=== PATIENT | female | born 1960 | race Caucasian/White ===

== ENCOUNTER 2019-11-23 15:35 | Emergency (ER) | payer MEDICAID ==
[~2019-11-23] VITALS: Ht 154.9 cm; Wt 75.0 kg
[2019-11-23 15:54] VITALS: BP 141/94
== END 2019-11-23 16:18 | disposition left against medical advice (07) ==
LOC: ER 15:36
DX: R51.9 Headache, unspecified (principal); Z53.21 Procedure and treatment not carried out due to patient leaving prior to being seen by health care provider

== ENCOUNTER 2021-06-04 19:02 | Emergency (ER) | payer MEDICAID ==
[~2021-06-04] VITALS: Ht 157.5 cm; Wt 77.3 kg
[2021-06-04 19:09] VITALS: BP 125/88
[2021-06-04] MEDS ORDERED: ketorolac trometh. 30mg/ml inj. IM ONE (20:00)
[2021-06-04] MEDS ORDERED: IBUP-1985 PO (20:00)
== END 2021-06-04 20:32 | disposition home or self-care (01) ==
LOC: ER 19:03
DX: M54.32 Sciatica, left side (principal); Z79.899 Other long term (current) drug therapy
CPT/HCPCS: 96372; 99283; J1885

== ENCOUNTER 2021-06-09 17:55 | Emergency (ER) | payer MEDICAID ==
[~2021-06-09] VITALS: Ht 154.9 cm; Wt 81.8 kg
[~2021-06-09 17:55] MED LIST: IBUP-1985 PO
[2021-06-09 18:01] VITALS: BP 147/85
[2021-06-09] MEDS ORDERED: gabapentin 100mg capsule PO ONE (18:45)
--- NOTE | 2021-06-09 18:58 | NUR ---
po med given
[2021-06-09] MEDS ORDERED: META800T87 PO (19:04)
== END 2021-06-09 19:20 | disposition home or self-care (01) ==
LOC: ER 17:56
DX: S86.912A Strain of unspecified muscle(s) and tendon(s) at lower leg level, left leg, initial encounter (principal); M54.32 Sciatica, left side; M79.652 Pain in left thigh; R22.43 Localized swelling, mass and lump, lower limb, bilateral; R20.0 Anesthesia of skin; R20.2 Paresthesia of skin; Z79.899 Other long term (current) drug therapy; X58.XXXA Exposure to other specified factors, initial encounter; Y93.89 Activity, other specified; Y92.89 Other specified places as the place of occurrence of the external cause; Y99.8 Other external cause status
CPT/HCPCS: 99283

== ENCOUNTER 2022-12-18 10:37 | Emergency (ER) | payer MEDICAID ==
[~2022-12-18] VITALS: Ht 157.5 cm; Wt 80.0 kg
[~2022-12-18 10:37] MED LIST changes: +META800T87 PO
[2022-12-18 11:16] LABS: BASOPHILS % (AUTO) 0.7 % (0-1); EOSINOPHILS # (AUTO) 0.3 X10'3 (0-0.9); HEMATOCRIT 49.8 % (35.0-45.0); HEMOGLOBIN 16.8 g/dl (12.0-16.0); LYMPHOCYTES % (AUTO) 27.6 % (21-51); MEAN CORPUSCULAR HEMOGLOBIN 32.8 PG (27.0-31.0); MEAN CORPUSCULAR HGB CONC 33.7 g/dL (33.0-36.5); MEAN CORPUSCULAR VOLUME 97.3 FL (78-98); MEAN PLATELET VOLUME 8.3 FL (7.4-10.4); MONOCYTES # (AUTO) 0.6 X10'3 (0-0.9); MONOCYTES % (AUTO) 8.6 % (2-12); NEUTROPHILS # (AUTO) 4.2 X10'3 (1.8-7.7); NEUTROPHILS % (AUTO) 59.1 % (42-75); PLATELET COUNT 267 X10'3 (140-440); RED BLOOD COUNT 5.12 X10'6 (4.20-5.60); RED CELL DISTRIBUTION WIDTH 13.4 % (11.5-14.5); WHITE BLOOD COUNT 7.1 X10'3 (4.5-11.0)
[2022-12-18 11:38] LABS: ALANINE AMINOTRANSFERASE 32 U/L (12-78); ALBUMIN 3.8 G/DL (3.4-5.0); ALKALINE PHOSPHATASE 100 IU/L (46-116); ANION GAP 10 (8-16); BILIRUBIN,TOTAL 0.4 MG/DL (0.1-1.0); BLOOD UREA NITROGEN 17 MG/DL (7-18); BUN/CREATININE RATIO 25.4 (10.0-20.0); CALCIUM 9.5 MG/DL (8.5-10.1); CHLORIDE 101 MMOL/L (99-107); CREATININE 0.67 MG/DL (0.40-0.90); GLUCOSE 122 MG/DL (70-104); SODIUM 139 MMOL/L (135-145); TOTAL CARBON DIOXIDE 27.7 MMOL/L (24-32); TOTAL PROTEIN 7.5 G/DL (6.4-8.2); eCRCL 71 ML/MIN; eGFR 90 ML/MIN
[2022-12-18 11:40] LABS: ASPARTATE AMINO TRANSFERASE 27 U/L (10-37)
[2022-12-18 11:54] LABS: APTT 29 SECONDS (22-32); PROTHROMBIN TIME 10.3 SECONDS (9.0-12.0)
[2022-12-18 13:02] VITALS: BP 147/85; PULSE 92; RESP 16; TEMP 98.5; O2SAT 99
== END 2022-12-18 16:55 | disposition left against medical advice (07) ==
LOC: ER 10:37
DX: R51.9 Headache, unspecified (principal)
CPT/HCPCS: 36415; 70450; 71045; 80053; 82948; 85025; 85610; 85730; 93005; 99285

== ENCOUNTER 2023-07-12 04:37 | Inpatient (IN) | payer MEDICAID ==
[~2023-07-12] VITALS: Ht 154.9 cm; Wt 84.9 kg
[2023-07-12 05:57] LABS: BASOPHILS # (AUTO) 0.1 X10'3 (0-0.2); BASOPHILS % (AUTO) 0.9 % (0-1); EOSINOPHILS # (AUTO) 0.4 X10'3 (0-0.9); EOSINOPHILS % (AUTO) 6.1 % (0-6); HEMATOCRIT 42.3 % (35.0-45.0); HEMOGLOBIN 14.5 g/dl (12.0-16.0); LYMPHOCYTES # (AUTO) 1.7 X10'3 (1.1-4.8); MEAN CORPUSCULAR HEMOGLOBIN 32.9 PG (27.0-31.0); MEAN CORPUSCULAR HGB CONC 34.3 g/dL (33.0-36.5); MEAN CORPUSCULAR VOLUME 96.1 FL (78-98); MEAN PLATELET VOLUME 8.6 FL (7.4-10.4); MONOCYTES # (AUTO) 0.8 X10'3 (0-0.9); MONOCYTES % (AUTO) 11.5 % (2-12); NEUTROPHILS # (AUTO) 3.8 X10'3 (1.8-7.7); NEUTROPHILS % (AUTO) 56.5 % (42-75); PLATELET COUNT 240 X10'3 (140-440); RED CELL DISTRIBUTION WIDTH 13.2 % (11.5-14.5); WHITE BLOOD COUNT 6.7 X10'3 (4.5-11.0)
[2023-07-12 06:00] LABS: ALBUMIN 3.5 G/DL (3.4-5.0); ANION GAP 6 (8-16); BLOOD UREA NITROGEN 23 MG/DL (7-18); BUN/CREATININE RATIO 34.8 (10.0-20.0); CALCIUM 8.7 MG/DL (8.5-10.1); CHLORIDE 105 MMOL/L (99-107); CREATININE 0.66 MG/DL (0.40-0.90); GLUCOSE 105 MG/DL (70-104); POTASSIUM 3.5 MMOL/L (3.5-5.1); SODIUM 141 MMOL/L (135-145); TOTAL CARBON DIOXIDE 30.2 MMOL/L (24-32); eCRCL 68 ML/MIN; eGFR > 90 ML/MIN
[2023-07-12 06:05] LABS: APTT 28 SECONDS (22-32); PROTHROMBIN TIME 10.7 SECONDS (9.0-12.0)
[2023-07-12] MEDS ORDERED: morphine 2 MG/ML inj. syringe IV PRN (06:35)
[2023-07-12] MEDS: normal saline 1000ML IV soln IVB ONE (06:47)
[2023-07-12] MEDS: proCHLORperazine 10 MG/2 ml inj IV ONE (06:47)
[2023-07-12] MEDS: ketorolac tromethamine 15mg/ml inj. IV ONE (06:49)
[2023-07-12] MEDS: SUMAtriptan succ. 6 MG/0.5ml vial SQ ONE (06:50)
[2023-07-12] MEDS: normal saline 1000ml 1,000 ML IV SCH (08:35)
[2023-07-12] MEDS ORDERED: hydrALAZINE 20mg/ml inj. IV PRN (08:35)
[2023-07-12] MEDS ORDERED: acetaminophen 325mg tablet PO PRN (08:35)
[2023-07-12] MEDS: aspirin 325mg tablet PO ONE (09:53)
[2023-07-12 09:54] LABS: CHOL/HDL RATIO 2.8 (0.00-4.99); CHOLESTEROL 179 MG/DL (0-200); HDL CHOLESTEROL 63 MG/DL (35-60); HEMOGLOBIN A1C 5.2 % (4.5-6.2); LDL CHOLESTEROL 100 MG/DL (50-100); TRIGLYCERIDES 138 MG/DL (20-135)
[2023-07-12 12:20] VITALS: BP 139/73; PULSE 71; RESP 18; TEMP 97.5; O2SAT 97
[2023-07-12 16:00] VITALS: BP 136/64; PULSE 69; RESP 17; TEMP 97.1; O2SAT 98
[2023-07-12] MEDS: METAXALONE 800 MG PO SCH (16:00)
[2023-07-12 17:01] LABS: BILIRUBIN,URINE NEGATIVE (Neg); CLARITY,URINE SLIGHTLY CLOUDY (Clear); COLOR,URINE YELLOW (Yellow); GLUCOSE, URINE NEGATIVE (Neg); KETONES,URINE NEGATIVE (Neg); LEUKOCYTE ESTERASE ,URINE NEGATIVE (Neg); NITRITES, URINE NEGATIVE (Neg); OCCULT BLOOD,URINE NEGATIVE (Neg); PROTEIN,URINE NEGATIVE (Neg); UROBILINOGEN,URINE 0.2 E.U/dL (0.2-1.0)
[2023-07-12 17:14] LABS: URINE AMPHETAMINE SCREEN POSITIVE (Neg); URINE BARBITUATE SCREEN NEGATIVE (Neg); URINE BENZODIAZEPINES SCREEN NEGATIVE (Neg); URINE CANNABINOID SCREEN POSITIVE (Neg); URINE COCAINE SCREEN NEGATIVE (Neg); URINE METHADONE SCREEN NEGATIVE (Neg); URINE PHENCYCLIDINE SCREEN NEGATIVE (Neg)
[2023-07-12 17:24] LABS: UA COLLECTION TYPE NON-SPECIFIED
[2023-07-12 17:25] LABS: BACTERIA,URINE FEW /HPF (Neg); MUCUS STRANDS MANY /LPF (Neg); RBC,URINE 0-2 /HPF (0-2); SQUAMOUS EPITHELIAL CELL,UR FEW /LPF (FEW); WBC,URINE 0-4 /HPF (0-4)
[2023-07-12 18:00] VITALS: BP 137/89; PULSE 80; RESP 16; TEMP 97.7; O2SAT 95
[2023-07-12 20:00] VITALS: BP 137/89; PULSE 80; RESP 16; TEMP 97.7; O2SAT 95
[2023-07-12] MEDS: docusate sod 100mg capsule PO SCH (21:23)
[2023-07-12] MEDS: diphenhydrAMINE 50 mg/ml inj IV ONE (21:23)
[2023-07-12 22:00] VITALS: BP 123/67; PULSE 78; RESP 16; TEMP 97.6; O2SAT 95
[2023-07-13] VITALS (9 sets, daily range): BP systolic 123–174; BP diastolic 65–85; PULSE 68–90; RESP 14–16; TEMP 97.1–97.8; O2SAT 94–99
[2023-07-13 06:14] LABS: BASOPHILS % (AUTO) 0.7 % (0-1); EOSINOPHILS # (AUTO) 0.4 X10'3 (0-0.9); EOSINOPHILS % (AUTO) 6.7 % (0-6); HEMOGLOBIN 14.1 g/dl (12.0-16.0); LYMPHOCYTES # (AUTO) 1.8 X10'3 (1.1-4.8); LYMPHOCYTES % (AUTO) 33.2 % (21-51); MEAN CORPUSCULAR HEMOGLOBIN 32.4 PG (27.0-31.0); MEAN CORPUSCULAR HGB CONC 33.5 g/dL (33.0-36.5); MEAN CORPUSCULAR VOLUME 96.7 FL (78-98); MEAN PLATELET VOLUME 9.1 FL (7.4-10.4); MONOCYTES # (AUTO) 0.4 X10'3 (0-0.9); MONOCYTES % (AUTO) 8.3 % (2-12); NEUTROPHILS # (AUTO) 2.8 X10'3 (1.8-7.7); NEUTROPHILS % (AUTO) 51.1 % (42-75); PLATELET COUNT 242 X10'3 (140-440); RED BLOOD COUNT 4.35 X10'6 (4.20-5.60); RED CELL DISTRIBUTION WIDTH 13.4 % (11.5-14.5); WHITE BLOOD COUNT 5.4 X10'3 (4.5-11.0)
[2023-07-13 06:45] LABS: ALANINE AMINOTRANSFERASE 38 U/L (12-78); ALBUMIN/GLOBULIN RATIO 0.9 (1.1-1.5); ALKALINE PHOSPHATASE 87 IU/L (46-116); ANION GAP 7 (8-16); ASPARTATE AMINO TRANSFERASE 27 U/L (10-37); BILIRUBIN,TOTAL 0.5 MG/DL (0.1-1.0); BLOOD UREA NITROGEN 17 MG/DL (7-18); BUN/CREATININE RATIO 28.3 (10.0-20.0); CALCIUM 8.5 MG/DL (8.5-10.1); CHLORIDE 107 MMOL/L (99-107); GLUCOSE 85 MG/DL (70-104); POTASSIUM 3.7 MMOL/L (3.5-5.1); SODIUM 141 MMOL/L (135-145); THYROID STIMULATING HORMONE 2.12 ulU/ml (0.34-4.50); TOTAL PROTEIN 6.3 G/DL (6.4-8.2); eCRCL 75 ML/MIN; eGFR > 90 ML/MIN
[2023-07-13] MEDS: atorvastatin 20mg tablet PO SCH (07:29)
[2023-07-13] MEDS: enoxaparin 40mg/0.4ml syringe SQ SCH (07:29)
[2023-07-13] MEDS: aspirin 81mg, enteric-coated 1 TAB TABLET.DR PO SCH (07:29)
[2023-07-13] MEDS ORDERED: clopidogrel 75mg tablet PO SCH (08:00)
[2023-07-13] MEDS: diazepam inj 5 MG/ML inj. IV ONE (13:38)
[2023-07-13] MEDS: acetaminophen 325mg tablet PO PRN (19:04)
[2023-07-14] VITALS: BP 152/79; PULSE 94; RESP 18; TEMP 98.2; O2SAT 99
[2023-07-14 04:00] VITALS: BP 144/79; PULSE 77; RESP 18; TEMP 97.7; O2SAT 98
[2023-07-14 06:05] LABS: BASOPHILS % (AUTO) 0.7 % (0-1); EOSINOPHILS # (AUTO) 0.4 X10'3 (0-0.9); EOSINOPHILS % (AUTO) 6.2 % (0-6); HEMATOCRIT 42.5 % (35.0-45.0); HEMOGLOBIN 14.6 g/dl (12.0-16.0); LYMPHOCYTES # (AUTO) 1.5 X10'3 (1.1-4.8); MEAN CORPUSCULAR HEMOGLOBIN 32.8 PG (27.0-31.0); MEAN CORPUSCULAR HGB CONC 34.3 g/dL (33.0-36.5); MEAN CORPUSCULAR VOLUME 95.6 FL (78-98); MEAN PLATELET VOLUME 8.4 FL (7.4-10.4); MONOCYTES # (AUTO) 0.6 X10'3 (0-0.9); MONOCYTES % (AUTO) 9.4 % (2-12); NEUTROPHILS # (AUTO) 3.6 X10'3 (1.8-7.7); NEUTROPHILS % (AUTO) 58.7 % (42-75); PLATELET COUNT 218 X10'3 (140-440); RED BLOOD COUNT 4.45 X10'6 (4.20-5.60); RED CELL DISTRIBUTION WIDTH 13.2 % (11.5-14.5); WHITE BLOOD COUNT 6.1 X10'3 (4.5-11.0)
[2023-07-14 06:12] LABS: ALANINE AMINOTRANSFERASE 35 U/L (12-78); ALBUMIN 2.9 G/DL (3.4-5.0); ALBUMIN/GLOBULIN RATIO 0.8 (1.1-1.5); ALKALINE PHOSPHATASE 93 IU/L (46-116); ANION GAP 5 (8-16); ASPARTATE AMINO TRANSFERASE 23 U/L (10-37); BILIRUBIN,TOTAL 0.4 MG/DL (0.1-1.0); BLOOD UREA NITROGEN 16 MG/DL (7-18); CALCIUM 8.4 MG/DL (8.5-10.1); CHLORIDE 106 MMOL/L (99-107); CREATININE 0.64 MG/DL (0.40-0.90); GLUCOSE 100 MG/DL (70-104); POTASSIUM 3.8 MMOL/L (3.5-5.1); SODIUM 140 MMOL/L (135-145); TOTAL CARBON DIOXIDE 29.5 MMOL/L (24-32); TOTAL PROTEIN 6.4 G/DL (6.4-8.2); eCRCL 71 ML/MIN; eGFR > 90 ML/MIN
[2023-07-14 07:00] VITALS: BP 125/86; PULSE 85; RESP 18; TEMP 97.9; O2SAT 100
[2023-07-14 11:00] VITALS: BP 143/78; PULSE 95; RESP 18; TEMP 96.7; O2SAT 96
[2023-07-14] MEDS ORDERED: ASPI-1071 PO (13:21)
[2023-07-14] MEDS ORDERED: ATOR20TA66 PO (13:21)
== END 2023-07-14 14:35 | disposition home or self-care (01) | DRG 54 ==
LOC: ER 04:38 → ED HOLD 08:51 → PCU 3S 12:02
PROVIDERS: ADMIT Family Medicine; ATTEND Family Medicine
DX: G43.809 Other migraine, not intractable, without status migrainosus (principal); G45.9 Transient cerebral ischemic attack, unspecified; E11.9 Type 2 diabetes mellitus without complications; F17.210 Nicotine dependence, cigarettes, uncomplicated; M54.32 Sciatica, left side; G89.4 Chronic pain syndrome; E78.5 Hyperlipidemia, unspecified; F10.10 Alcohol abuse, uncomplicated; Y90.9 Presence of alcohol in blood, level not specified; F15.10 Other stimulant abuse, uncomplicated; F12.10 Cannabis abuse, uncomplicated; M51.36 Other intervertebral disc degeneration, lumbar region; M48.061 Spinal stenosis, lumbar region without neurogenic claudication; E88.2 Lipomatosis, not elsewhere classified; M43.16 Spondylolisthesis, lumbar region; M40.56 Lordosis, unspecified, lumbar region
CPT/HCPCS: 36415; 70450; 70551; 71045; 72148; 80048; 80053; 80305; 81001; 82948; 84443; 85025; 85610; 85651; 85730; 87081; 92508; 92616; 93005; 93306; 93880; 96374; 96375; 97161; 97530; 99285; G0378; J0780; J1200; J1650; J1885; J3030; J3360; J7030

== ENCOUNTER 2024-06-27 21:16 | Inpatient (IN) | payer MEDICAID ==
[~2024-06-27] VITALS: Ht 154.9 cm; Wt 72.0 kg
[~2024-06-27 21:16] MED LIST changes: +ASPI-1071 PO; +ATOR20TA66 PO
--- NOTE | 2024-06-27 21:39 | ELECTROCARDIOGRAPH REPORT ---
[facility] Test Date: 2024-06-27 Test Time: 21:22:47 Pat Name: ELAINA GARCIA Department: EMERGENCY ROOM Room: ORTH[facility] Gender: F Sample Stitcher: PEE : 1960 Requested By: TONEY BAUTISTA Order Number: [id number] Reading MD: Dr. Ronni Jackson Measurements Intervals [place] Rate: 92 P: 47 CO: 139 QRS: 58 QRSD: 90 T: 20 QT: 368 QTc: 456 Interpretive Statements Sinus rhythm Electronically Signed On 06-30-2024 21:44:[address] Ronni Jackson Please click the below link to view image of tracing.
--- NOTE | 2024-06-27 21:51 | RADIOLOGY REPORT ---
CT CT STROKE ALERT INDICATION: Neurological symptoms COMPARISON: CT CT STROKE ALERT on DOS: 07/12/23, CT CT STROKE ALERT on DOS: 12/18/22 TECHNIQUE: CT of the head without intravenous contrast. RADIATION DOSE: CTDIvol: 54 mGy, DLP: 850 mGy*cm FINDINGS: There is no evidence of acute intracranial hemorrhage, extra-axial collection, mass effect, midline s hift, herniation or hydrocephalus. The ventricles, sulci and cisterns are age appropriate. The marquez -white differentiation is intact. The visualized paranasal sinuses and mastoid air cells are clear. The surrounding soft tissues and osseous structures are unremarkable. IMPRESSION: 1. No evidence of acute intracranial hemorrhage, mass effect or hydrocephalus.
[2024-06-27 21:56] LABS: BASOPHILS # (AUTO) 0.1 X10'3 (0-0.2); BASOPHILS % (AUTO) 0.8 % (0-1); EOSINOPHILS # (AUTO) 0.4 X10'3 (0-0.9); EOSINOPHILS % (AUTO) 5.9 % (0-6); HEMATOCRIT 42.8 % (35.0-45.0); HEMOGLOBIN 14.7 g/dl (12.0-16.0); LYMPHOCYTES # (AUTO) 2.3 X10'3 (1.1-4.8); LYMPHOCYTES % (AUTO) 29.9 % (21-51); MEAN CORPUSCULAR HEMOGLOBIN 32.4 PG (27.0-31.0); MEAN CORPUSCULAR HGB CONC 34.2 g/dL (33.0-36.5); MEAN CORPUSCULAR VOLUME 94.7 FL (78-98); MONOCYTES # (AUTO) 0.9 X10'3 (0-0.9); MONOCYTES % (AUTO) 11.8 % (2-12); NEUTROPHILS # (AUTO) 3.9 X10'3 (1.8-7.7); NEUTROPHILS % (AUTO) 51.6 % (42-75); PLATELET COUNT 278 X10'3 (140-440); RED BLOOD COUNT 4.52 X10'6 (4.20-5.60); WHITE BLOOD COUNT 7.6 X10'3 (4.5-11.0)
[2024-06-27 22:00] LABS: APTT 27 SECONDS (22-32); PROTHROMBIN TIME 10.6 SECONDS (9.0-12.0)
[2024-06-27 22:09] LABS: ALANINE AMINOTRANSFERASE 35 U/L (12-78); ALBUMIN/GLOBULIN RATIO 1.2 (1.1-1.5); ALKALINE PHOSPHATASE 113 IU/L (46-116); ANION GAP 6 (8-16); ASPARTATE AMINO TRANSFERASE 29 U/L (10-37); BILIRUBIN,TOTAL 0.4 MG/DL (0.1-1.0); BLOOD UREA NITROGEN 23 MG/DL (7-18); BUN/CREATININE RATIO 28.8 (10.0-20.0); CALCIUM 8.8 MG/DL (8.5-10.1); CHLORIDE 103 MMOL/L (99-107); GLUCOSE 115 MG/DL (70-104); POTASSIUM 3.6 MMOL/L (3.5-5.1); SODIUM 139 MMOL/L (135-145); TOTAL CARBON DIOXIDE 30.2 MMOL/L (24-32); TOTAL PROTEIN 7.4 G/DL (6.4-8.2); eCRCL 56 ML/MIN; eGFR 73 ML/MIN
[2024-06-27 22:16] LABS: PRO BRAIN NATRIURETIC PEPTIDE 42 PG/ML (0-125)
--- NOTE | 2024-06-28 00:12 | RADIOLOGY REPORT ---
Clinical History CP Comparison None Technique: frontal chest x-ray Without Contrast ELAINA GARCIA, [id number] Findings: Heart - normal lungs - no consolidation. bones - no acute fracture. Other- Impression: 1. No acute cardiopulmonary disease This report was electronically signed by Juan Ramon Cortes MD on 06/28/2024 12:09:46 AM.
[2024-06-28] MEDS ORDERED: potassium Cl 20 mEq SR tablet PO PRN ×2 (01:50)
[2024-06-28] MEDS ORDERED: potassium Cl 40MEQ/1/2NS 520ml 520 ML IV PRN (01:50)
[2024-06-28] MEDS ORDERED: mag hydrox/Alum hydrox/simeth 30ml oral suspension PO PRN (01:50)
[2024-06-28] MEDS ORDERED: morphine 2 MG/ML inj. syringe IV PRN ×2 (01:50)
[2024-06-28] MEDS ORDERED: magnesium Cl slow-release 64mg tablet PO PRN (01:50)
[2024-06-28] MEDS ORDERED: magnesium sulf-water 2g/50mL 50 ML IV PRN (01:50)
[2024-06-28] MEDS ORDERED: magnesium sulf-water 4G/100mL 100 ML IV PRN (01:50)
[2024-06-28] MEDS ORDERED: magnesium hydroxide 30ml (MOM) UD suspension PO PRN (01:50)
--- NOTE | 2024-06-28 01:53 | HISTORY AND PHYSICAL-Residence ---
History & Physical Providers to CC Resident Creating Document: TENA WASHINGTONKEY INDRA, RES ~ History of Present Illness Primary Medical Doctor: [facility] Reason for Admit\Complaint: Right upper and lower extremity weakness. History of Present Illness 63-year-old female patient with past medical history of hypertension, dyslipidemia, depression, chronic back pain, TIA came to the hospital with chief complaint of right-sided upper and lower extremity weakness. The patient mentioned that approximately six days ago she had blurry vision which last approximately 2 minute, two days later she experienced headache 8/10 intensity localized at the level of the occipital area, without radiation, described as a sharp pain. For those symptoms the patient decided to take naproxen which mildly helped, yesterday the patient experienced blurry vision again which last approximately 2 minutes and she noticed that she was unbalanced with right upper and lower extremity weakness. The patient also endorses that she had numbness at the level of the right side of her mouth which last approximately 1 minute. The patient currently denies chest pain, shortness of breath, palpitations, urinary or intestinal symptoms. Allergies: Coded Allergies: No Known Allergies (Unverified , 06/09/21) Home Medications Home Medications Active Ecotrin* (Aspirin) 81 Mg Tablet.dr 1 Tab PO DAILY 30 Days Atorvastatin Calcium 20 Mg Tablet 20 Mg PO DAILY 30 Days Skelaxin (Metaxalone) 800 Mg Tablet 1 Tab PO Q8H 10 Days Ibuprofen 600 Mg Tablet 1 Tab PO Q8H 10 Days Past Medical History Past Medical History Hypertension. Dyslipidemia. Depression. Chronic back pain. TIA last year. Past Surgical History Surgical History Comment Exploratory laparoscopic surgery. Past Social History Smoking: Less than 1 pack/day (Patient endorses that she smokes one pack a week for at least 45 years.) Alcohol Use: Occasionally (As per patient she drinks two shots of Tequila per month.) Drug Use: Marijuana, Methamphetamine Lives with: Other (Boyfriend) Lives In: Home Occupation: disabled ROS All Other Systems: Reviewed and Negative Exam Vitals: Vital Signs Date Time Temp Pulse Resp B/P (MAP) Pulse Ox O2 Delivery O2 Flow Rate FiO2 06/28/24 01:25 91 12 122/71 (88) 98 06/27/24 21:20 97.5 0 Physical exam: General: Well alert, well oriented, not confused, not agitated, not in acute distress, well cooperated during the physical. HEENT: Conjunctive are pink, sclerae clear, no icterus, pupil is equal in both sides, reactive to light, no ear discharge, no pharyngeal erythema or an edema. Neck: Supple, no JVD, no lymphadenopathy and thyromegaly. Chest: Equal air entry on both lungs, no additional sounds no rhonchi no wheezing at the moment. Cardiovascular: S1-S2 regular sinus rhythm and, regular rate, no gallops, no rubs, no murmurs Abdomen: No visible peristalsis, Bowel sounds present on auscultation, soft, nontender, no guarding, no rigidity Extremities: No obvious deformities, no pitting edema bilaterally, capillary refill intact, peripheral pulsations are intact on both sides Central Nervous System: No focal neurological deficits, no motor or sensory weakness in all 4 extremities, could move all 4 extremities, 2+ deep tendon reflexes, negative Babinski, negative pronator drift. Musculoskeletal: No joint swelling, deformities, inflammations, and no scoliosis and back tenderness Skin: Scar from laparoscopic surgery at the level of the navel. Diagnostic Data Last Recorded Lab Results: 06/27/24212306/27/242123 Diagnostic Data: Laboratory Tests Test 06/27/24 21:24 Prothrombin Time 10.6 SECONDS (9.0-12.0) INR International Normalized Ratio 1.0 INR Activated Partial Thromboplast Time 27 SECONDS (22-32) Coagulation Comments Advance Care Planning Advanced Care plannin - 30 Minutes (I spent a total of 17 minutes on reviewing various resuscitative measures/ACP with the patient at the time of admission. The patient has decided on a full code status.) Additional Plan Assessment and plan: 63-year-old female patient came to the hospital with chief complaint of right upper and lower extremity weakness. TIA versus acute ischemic stroke: The patient came to the hospital with chief complaint of right upper and lower extremity weakness. Head CT scan: No evidence of acute intracranial hemorrhage, mass effect or hydrocephalus. Follow-up MRI of the head. Follow-up echocardiogram. Follow-up lipid panel, hemoglobin A1c, TSH. Neurology consulted by ER physician. Awaiting recommendations. Aspirin 81 mg daily. Atorvastatin 80 mg daily. NS at 80 mL/hour. Hypertension: Currently on permissive hypertension. Labetalol p.r.n. for SBP more than 220 mmHg or DBP more than 120 mmHg. Dyslipidemia: Follow-up lipid panel. The patient is currently on atorvastatin 80 mg daily. Chronic back pain: Gabapentin to be continued after med reconciliation. Depression: The patient was taking bupropion. To be continued after med reconciliation. Code status: Full code DVT prophylaxis: SCDs Analgesia/sedation: Morphine Line/tube: PIV GI prophylaxis: Protonix Nutrition: Regular diet PT: Ordered Prognosis: Guarded Disposition: The patient will be admitted to ortho floor with telemetry. [place] [facility] Resident [facility] Date of Service: June 28, 2024 Billing Provider: SPARKLE ANSARI Jr., FRANCO LUIS, RES June 28, 2024 01:53
[2024-06-28 02:29] LABS: POTASSIUM 3.7 MMOL/L (3.5-5.1)
[2024-06-28] MEDS ORDERED: labetalol 20mg/4ml (5mg/ml) syringe IV PRN (02:30)
--- NOTE | 2024-06-28 02:31 | Physician Documentation ---
History of Present Illness ~ Chief Complaint: Stroke Alert Stated Complaint: STROKE ALERT Time Seen by MD: 21:20 Primary Medical Doctor: None Mode of Arrival: POV HPI 63-year-old female patient with past medical history of hypertension, dyslipidemia, depression, chronic back pain, TIA came to the hospital with chief complaint of right-sided upper and lower extremity weakness. The patient mentioned that approximately 6 days ago she had blurry vision which last approximately 2 minutes, two days later she experienced headache 8/10 intensity localized at the level of the occipital area, without radiation, described as a sharp pain. For those symptoms the patient decided to take naproxen which mildly helped, yesterday the patient experienced blurry vision again which last approximately 2 minutes and she noticed that she was unbalanced with right upper and lower extremity weakness. The patient also endorses that she had numbness at the level of the right side of her mouth which last approximately 1 minute. The patient currently denies chest pain, shortness of breath, palpitations, urinary or intestinal symptoms. Medication Reconciliation Allergies: Coded Allergies: No Known Allergies (Unverified , 06/09/21) Scheduled Aspirin (Ecotrin*), 1 TAB PO DAILY Atorvastatin Calcium (Atorvastatin Calcium), 20 MG PO DAILY Ibuprofen (Ibuprofen), 1 TAB PO Q8H Metaxalone (Skelaxin), 1 TAB PO Q8H Past Medical History Past Medical History: Migraine Past Surgical History: no surgical history Smoking Status: Current every day smoker Drug Use: none Lives In: Home Review of Systems All Other Systems at this time: Reviewed and Negative Physical Exam Vital Signs: RN Vital Signs have been reviewed: Yes, Temperature: 97.5, Source: Oral, Heart Rate: 91, Respiratory Rate: 12, BP: 122/71, Pulse Oximetry: 98, Weight: 72.000 Oxygen Flow Rate: 0 General Appearance HEENT: PERRL, moist oral mucosa, EOMI Pulmonary: No respiratory distress MSK: no deformity Skin: w/d/i, no rash Neuro: alert, nonfocal Psych: normal affect Progress Results/Orders Results/Orders Orders - TONEY BAUTISTA MD Chest,Single View (06/27/24 21:19) Monitor (06/27/24 21:19) Saline Lock (06/27/24 21:19) Oxygen (06/27/24 21:19) Hs Troponin I W Calculations (06/28/24 00:19) Accucheck (06/27/24 21:29) Ct Stroke Alert (06/27/24 21:39) Page Hospitalist (06/28/24 ) Completed Orders - TONEY BAUTISTA MD Chest,Single View (06/27/24 21:19) Cbc/Diff (06/27/24 21:19) PBNP (06/27/24 21:19) Electrocardiogram (06/27/24 21:19) CMP (06/27/24 21:19) Hs Troponin I W Calculations (06/27/24 21:19) Hs Troponin I W Calculations (06/27/24 23:19) Urinalysis, Cult If Indicated (06/27/24:) PTT (06/27/24:29) Pt Inr (06/27/24 21:29) Ct Stroke Alert (06/27/24 21:39) Hgb A1c (06/27/24 21:24) TSH (06/27/24 21:24) Medications Received in ER Medications (Trade) Dose Ordered Sig/Nahid Route PRN Reason Start Time Stop Time Status Last Admin Dose Admin Sodium Chloride 1,000 ml @ 80 mls/hr [id number] IV 06/28/24 01:50 06/28/24 03:16 80 MLS/HR Vital Signs 06/27/24 06/27/24 06/27/24 06/27/24 21:20 21:54 21:56 22:01 Temp 97.5 Pulse 94 92 89 Resp 16 18 16 12 B/P (MAP) 184/80 173/80 (111) 152/67 Pulse Ox 99 100 99 O2 Flow Rate 0 06/27/24 06/28/24 06/28/24 23:24 00:14 01:25 Pulse 87 80 91 Resp 19 17 12 B/P (MAP) 120/60 (80) 110/63 (79) 122/71 (88) Pulse Ox 99 94 98 Laboratory Tests Test 06/27/24 21:23 06/27/24 21:24 06/27/24 23:34 Glucometer 111 H White Blood Count 7.6 Red Blood Count 4.52 Hemoglobin 14.7 Hematocrit 42.8 Mean Corpuscular Volume 94.7 Mean Corpuscular Hemoglobin 32.4 H Mean Corpuscular Hemoglobin Concent 34.2 Red Cell Distribution Width 13.0 Platelet Count 278 Mean Platelet Volume 9.0 Neutrophils (%) (Auto) 51.6 Lymphocytes (%) (Auto) 29.9 Monocytes (%) (Auto) 11.8 Eosinophils (%) (Auto) 5.9 Basophils (%) (Auto) 0.8 Neutrophils # (Auto) 3.9 Lymphocytes # (Auto) 2.3 Monocytes # (Auto) 0.9 Eosinophils # (Auto) 0.4 Basophils # (Auto) 0.1 CBC Comment Prothrombin Time 10.6 INR International Normalized Ratio 1.0 Activated Partial Thromboplast Time 27 Coagulation Comments Sodium Level 139 Potassium Level 3.6 Chloride Level 103 Carbon Dioxide Level 30.2 Anion Gap 6 L Blood Urea Nitrogen 23 H Creatinine 0.80 Estimated GFR/1.73 m2 73 BUN/Creatinine Ratio 28.8 H Glucose Level 115 H Hemoglobin A1c 5.3 Calcium Level 8.8 Total Bilirubin 0.4 Aspartate Amino Transf (AST/SGOT) 29 Alanine Aminotransferase (ALT/SGPT) 35 Alkaline Phosphatase 113 Troponin I High Sensitivity 6 5 Pro-B-Type Natriuretic Peptide 42 Total Protein 7.4 Albumin 4.0 Globulin 3.4 Albumin/Globulin Ratio 1.2 Thyroid Stimulating Hormone (TSH) 3.56 Chemistry Comments Troponin I High Sens Percent Delta 16 Troponin I Hi Sens Absolute Change -1 Medical Decision Making Findings 63 year old female with vague neurologic symptoms. Workup here was unremarkable, elected to transfer care to hospitalist for inpatient MRI/workup. Differential Dx:Considerations: Include: Good's Palsey, CVA, DKA, Electrolyte imbalance, Encephalopathy, Hypoxemia, Hypoglycemia, Subarachnoid Hemorrhage, TIA Departure Disposition: 09 ADMITTED INPATIENT Admitted to Inpatient Unit: to hospitalist Admission Level of Care: Med/Surg Impression: Primary Impression: TIA (transient ischemic attack) Condition: Stable Referrals: NO PRIMARY CARE PROVIDER (PCP) Education Educated: Patient Educated regarding: diagnosis, treatment, prognosis, need for follow up Signature Scribe Signature: . Attestation: . TONEY BAUTISTA MD June 28, 2024 02:31
[2024-06-28 02:33] LABS: THYROID STIMULATING HORMONE 3.56 ulU/ml (0.34-4.50)
[2024-06-28 02:35] LABS: HEMOGLOBIN A1C 5.3 % (4.5-6.2)
[2024-06-28 02:54] LABS: URINE AMPHETAMINE SCREEN POSITIVE (Neg); URINE BARBITUATE SCREEN NEGATIVE (Neg); URINE BENZODIAZEPINES SCREEN NEGATIVE (Neg); URINE CANNABINOID SCREEN POSITIVE (Neg); URINE COCAINE SCREEN NEGATIVE (Neg); URINE METHADONE SCREEN NEGATIVE (Neg); URINE OPIATE SCREEN NEGATIVE (Neg); URINE PHENCYCLIDINE SCREEN NEGATIVE (Neg)
[2024-06-28 03:15] LABS: BILIRUBIN,URINE NEGATIVE (Neg); CLARITY,URINE CLEAR (Clear); COLOR,URINE YELLOW (Yellow); GLUCOSE, URINE NEGATIVE (Neg); KETONES,URINE NEGATIVE (Neg); LEUKOCYTE ESTERASE ,URINE NEGATIVE (Neg); NITRITES, URINE NEGATIVE (Neg); OCCULT BLOOD,URINE NEGATIVE (Neg); PH,URINE 6.5 (4.8-8.0); PROTEIN,URINE NEGATIVE (Neg); UROBILINOGEN,URINE 0.2 E.U/dL (0.2-1.0)
[2024-06-28] MEDS: aspirin 325mg tablet PO ONE (03:15)
[2024-06-28] MEDS: normal saline 1000ml 1,000 ML IV SCH (03:16)
[2024-06-28 03:20] LABS: UA COLLECTION TYPE CLN CATCH MIDSTREAM
[2024-06-28] MEDS: magnesium sulf-water 2g/50mL 50 ML IV ONE (04:37)
[2024-06-28] MEDS ORDERED: iohexol 350MG/ML 100ml bottle IV ONE (07:56)
[2024-06-28] MEDS: K and/or MAG REPLACEMENT MC SCH (08:00)
[2024-06-28] MEDS: aspirin 81mg, enteric-coated 1 TAB TABLET.DR PO SCH (08:27)
[2024-06-28] MEDS: atorvastatin 20mg tablet PO SCH (08:28)
[2024-06-28] MEDS: docusate sod 100mg capsule PO SCH (08:28)
[2024-06-28] MEDS: pantoprazole 40mg Tablet.DR PO SCH (08:28)
[2024-06-28] MEDS ORDERED: BUPR100T15 PO (09:25)
[2024-06-28] MEDS ORDERED: LOSA50TA64 PO (09:25)
[2024-06-28] MEDS ORDERED: GABA-530 PO (09:25)
[2024-06-28] MEDS ORDERED: PROP20TA6 PO (09:25)
[2024-06-28] MEDS ORDERED: NAPR-1166 PO (09:25)
[2024-06-28] MEDS ORDERED: CYCL-1 PO (09:25)
[2024-06-28] MEDS: SUMAtriptan 25 MG tablet PO ONE (09:26)
[2024-06-28 10:00] VITALS: BP 154/63; PULSE 89; RESP 16; TEMP 97.9; O2SAT 95
--- NOTE | 2024-06-28 10:34 | RADIOLOGY REPORT ---
CT CTA NECK/HEAD INDICATION: TIA EXAM DATE: 06/28/2024 07:00 AM COMPARISON: None RADIATION DOSE: CTDIvol: 14 mGy, DLP: 508 mGy*cm PROCEDURE: CT angiogram images were obtained of the head and neck. Coronal and sagittal reformatted i mages were created as well as 3D and/or MIP reconstructions. All CT scans at this medical facility are performed using dose modulation techniques as appropriate t o a performed exam including the following: Automated exposure control was utilized; adjustment of th e MA and/or KV according to patient size; and use of iterative reconstruction technique. FINDINGS: Head: Please see CT head for details. On the CT angiographic images, the internal carotid arteries are normal in caliber from the skull bas e to their bifurcations. The anterior and middle cerebral arteries and their branches appear normal. The anterior communicating artery appears normal. The bilateral posterior communicating arteries are normal. The vertebral arteries are codominant. The vertebral, basilar, superior cerebellar, and poste rior cerebral arteries are normal in caliber. No aneurysm, arteriovenous malformation, or stenosis is visible. Neck: 30% stenosis of the proximal right ICA at the bulb. Otherwise the common carotid, internal carotid, external carotid, and vertebral arteries are normal i n caliber. The left vertebral artery is dominant. The visualized intracranial arteries are normal. Th ere is no evidence of contrast extravasation, filling defects, or dissection. The pharynx and airway are normal. The thyroid, submandibular, and parotid glands appear normal. No l ymphadenopathy is seen. The visualized intracranial structures are unremarkable. IMPRESSION: 30% stenosis of the proximal right ICA at the bulb. No acute abnormal CT angiographic findings of the head and neck. No LVO seen
[2024-06-28] MEDS: ondansetron/PF 4mg/2ml inj IV PRN (10:41)
[2024-06-28] MEDS: diazepam inj 5 MG/ML inj. IV ONE (13:19)
--- NOTE | 2024-06-28 14:12 | RADIOLOGY REPORT ---
PROCEDURE: MR MRI HEAD INDICATION: Right upper and lower extremities weakness EXAM DATE: 06/28/2024 01:19 PM COMPARISON: MR MRI HEAD on DOS: 07/13/23 TECHNIQUE: MRI of the brain without intravenous contrast. FINDINGS: Diffusion weighted images of the brain demonstrate no evidence of acute infarction. There is no evidence of acute intracranial hemorrhage, extra-axial collection, mass effect, midline s hift, herniation or hydrocephalus. The ventricles, sulci and cisterns appear age appropriate. Mild changes of chronic microvascular ischemic disease. The major vascular flow voids are present. The visualized paranasal sinuses and mastoid air cells are clear. The surrounding soft tissues and o sseous structures are unremarkable. IMPRESSION: 1. No evidence of acute infarction, intracranial hemorrhage, mass effect or hydrocephalus. HS:Y
--- NOTE | 2024-06-28 15:14 | [facility] CONSULT REPORT ---
[facility] Procedure Note [facility] Procedure Note Consult [facility] Note # Demographics Consult Type: General Neurology Patient Location: Inpatient First Name: Graciela Last Name: Domingo Date of : 1960 Age: 63 Gender: Female Facility: [facility] Time of Initial Page (): 06/28/2024 14:29 Time of Return Call ( Time): 06/28/2024 14:29 # HPI History: 63 y/o F with Hx of migraines presents with migraine, blurry vision and transient Rt arm and leg paresthesia. # Exam Time of Exam (): 06/28/2024 15:08 Mental Status: - awake - alert and oriented x 3 - follows commands Language: - normal speech Cranial Nerves: - extra ocular movements intact - no facial droop Motor: - no drift Sensory: - normal sensation Cerebellar: - normal finger nose - normal heel ann # Data CTA Head: no large vessel occlusion CTA Neck: patent vessels MRI: no acute ischemia # Assessment Impression: - Migraine (Complex) # Plan Medication: - migraine cocktail: Toradol 30 mg IV + Benadryl 25 mg IV + antiemetic IV Other: - If patient has any neurological deterioration please call me back immediately - neurology referral as outpatient # Logistics Attestation of consult completion: The patient is located at: [facility]. Facility staff participated in the visit. I performed this telemedicine visit from my offsite office utilizing interactive 2 way audio and visual telecommunication technology. Total time spent in telemedicine encounter: I spent 30 minutes reviewing clinical data and/or imaging, obtaining history, examining the patient, communicating with the onsite care team, and in preparation of this report. # Demographics First Name: Graciela Last Name: Domingo Facility: [facility] Electronically signed at 06/28/2024 15:13 () by Hannah Manzanares DO Neuro Consult Order placed for: DAVID Howell DO June 28, 2024 15:13
[2024-06-28 18:00] VITALS: BP 146/84; PULSE 94; RESP 20; TEMP 98.3; O2SAT 92
--- NOTE | 2024-06-28 19:25 | CARDIOLOGY REPORT ---
APPROVED REPORT EXAM: Comprehensive 2D, Doppler, and color-flow Echocardiogram. Patient Location: [facility] Heart Rate: 85 bpm Rhythm: SINUS Indications CEREBRALVASCULAR ACCIDENT HYPERTENSION Pet Counselor: NONE Previous echo: 07/13/23 [facility] EF: 58%; nlLV; mCLVH; nlRV; PA 31; nlLA; nlAV; nlMV; trMR; trTR; no PE 2D Dimensions RVDd 3.3 cm LVOT Diameter 1.90 (1.8-2.4cm) CO 3.5 L/min M-Mode Dimensions Left Atrium(MM) 3.48 (2.5-4.0cm) IVSd 0.80 (0.7-1.1cm) LVDd 3.88 (4.0-5.6cm) Aortic Root 2.60 (2.2-3.7cm) PWd 0.86 (0.7-1.1cm) Aortic Cusp Exc 1.76 (1.5-2.0cm) IVSs 1.19 cm MV EPSS 0.4 (<0.5cm) LVDs 2.56 (2.0-3.8cm) FS (%) 34 % PWs 1.22 cm ESV(Teich) 23.7 ml LVEF(%) 63 (>50%) Aortic Valve AoV Peak Yevgeniy. 159.8 cm/s AoV VTI 30.0 cm AO Peak GR. 10.2 mmHg AO Mean GR. 5 mmHg LVOT VTI 25.13 cm LVOT Peak Yevgeniy. 108.5 cm/s DELBERT(VTI)/BSA 2.36 cm2/m2 DELBERT (VTI) 2.36 cm2 Mitral Valve MV E Velocity 113.0 cm/s MV Peak Gr. 6 mmHg MV DECEL TIME 172 ms MV A Velocity 148.5 cm/s MV PHT 68 ms E/A Ratio 0.8 MVA (PHT) 3.24 cm2 MV [id number] cm/s Tricuspid Valve TR P. Velocity 300 cm/s RAP ESTIMATE 10 mmHg TR Peak Gr. 36 mmHg RVSP 46 mmHg LEFT VENTRICLE Normal LV size and wall thickness. Overall systolic function is normal. LVEF is 60-65%. RIGHT VENTRICLE RV is normal size and function. Elevated right heart pressures as noted above. ATRIA Left atrium is mildly dilated. AORTIC VALVE Trileaflet AV appears mildly sclerotic without stenosis or insufficiency. MITRAL VALVE Trileaflet AV appears mild sclerotic without stenosis or insufficiency.Mild MV annular calcification with thickened leaflets without stenosis. Trace regurgitation. TRICUSPID VALVE TV appears structurally normal with trace regurgitation. PULMONIC VALVE Normal PV without stenosis, physiologic insufficiency. GREAT VESSELS Aortic root is normal in size. Ascending aorta is normal in size. PERICARDIUM Normal pericardium. No effusion. Other Information Study Quality: Adequate
[2024-06-28 22:00] VITALS: BP 108/61; PULSE 76; RESP 19; TEMP 97.4; O2SAT 100
[2024-06-29 02:00] VITALS: BP 114/65; PULSE 86; RESP 16; TEMP 97.7; O2SAT 99
[2024-06-29 04:44] LABS: BASOPHILS % (AUTO) 0.9 % (0-1); EOSINOPHILS # (AUTO) 0.4 X10'3 (0-0.9); EOSINOPHILS % (AUTO) 7.2 % (0-6); HEMATOCRIT 42.2 % (35.0-45.0); LYMPHOCYTES # (AUTO) 1.8 X10'3 (1.1-4.8); LYMPHOCYTES % (AUTO) 31.2 % (21-51); MEAN CORPUSCULAR HGB CONC 33.3 g/dL (33.0-36.5); MEAN PLATELET VOLUME 8.4 FL (7.4-10.4); MONOCYTES # (AUTO) 0.6 X10'3 (0-0.9); NEUTROPHILS # (AUTO) 2.9 X10'3 (1.8-7.7); NEUTROPHILS % (AUTO) 49.7 % (42-75); PLATELET COUNT 255 X10'3 (140-440); RED BLOOD COUNT 4.39 X10'6 (4.20-5.60); RED CELL DISTRIBUTION WIDTH 13.1 % (11.5-14.5); WHITE BLOOD COUNT 5.8 X10'3 (4.5-11.0)
[2024-06-29 05:07] LABS: ALANINE AMINOTRANSFERASE 30 U/L (12-78); ALBUMIN 2.9 G/DL (3.4-5.0); ALBUMIN/GLOBULIN RATIO 1.1 (1.1-1.5); ALKALINE PHOSPHATASE 99 IU/L (46-116); ANION GAP 4 (8-16); ASPARTATE AMINO TRANSFERASE 17 U/L (10-37); BILIRUBIN,TOTAL 0.3 MG/DL (0.1-1.0); BLOOD UREA NITROGEN 23 MG/DL (7-18); BUN/CREATININE RATIO 31.5 (10.0-20.0); CALCIUM 8.4 MG/DL (8.5-10.1); CHLORIDE 107 MMOL/L (99-107); CHOL/HDL RATIO 3.1 (0.00-4.99); CHOLESTEROL 164 MG/DL (0-200); CREATININE 0.73 MG/DL (0.40-0.90); GLUCOSE 123 MG/DL (70-104); HDL CHOLESTEROL 53 MG/DL (35-60); LDL CHOLESTEROL 92 MG/DL (50-100); MAGNESIUM 1.8 MG/DL (1.5-2.4); POTASSIUM 3.8 MMOL/L (3.5-5.1); SODIUM 141 MMOL/L (135-145); TOTAL CARBON DIOXIDE 30.1 MMOL/L (24-32); TOTAL PROTEIN 5.5 G/DL (6.4-8.2); TRIGLYCERIDES 128 MG/DL (20-135); eCRCL 61 ML/MIN; eGFR 81 ML/MIN
[2024-06-29] MEDS: acetaminophen 325mg tablet PO PRN (05:29)
[2024-06-29 06:00] VITALS: BP 118/67; PULSE 83; RESP 14; TEMP 97.5; O2SAT 99
[2024-06-29] MEDS: SUMAtriptan 25 MG tablet PO PRN (09:20)
[2024-06-29 10:00] VITALS: BP 166/92; PULSE 85; RESP 14; TEMP 97.9; O2SAT 100
[2024-06-29] MEDS: propranolol 10mg tablet PO SCH (13:31)
[2024-06-29] MEDS: gabapentin 100mg capsule PO SCH (13:31)
[2024-06-29] MEDS: cyclobenzaprine 10mg tablet PO SCH (13:31)
[2024-06-29] MEDS: diphenhydrAMINE 50 mg/ml inj IV ONE (13:51)
[2024-06-29] MEDS: ketorolac trometh 30MG/ML vial 30 MG/ML VIAL IV ONE (13:52)
--- NOTE | 2024-06-29 15:30 | PROGRESS NOTE ---
Daily Progress Note Providers to CC ~ Antibiotic Timeout Antibiotic Ordered?: No Subjective Headache came back this morning Objective Vital Signs Date Time Temp Pulse Resp B/P (MAP) Pulse Ox O2 Delivery O2 Flow Rate FiO2 06/29/24 13:52 16 06/29/24 08:00 Room Air 0.0 06/29/24 06:00 97.5 83 118/67 (84) 99 Result Diagram: 06/29/2442606/29/24426 In bed in nonacute distress HEENT normal oral mucosa no JVD Lungs with normal bilateral entry no crackles no wheezing Heart normal rate and rhythm S1-S2 Abdomen is soft nontender bowel sounds are present Extremities no edema plus two pulses Awake and alert grossly motor and sensory intact Coagulation Studies Laboratory Tests Test 06/27/24 21:24 Prothrombin Time 10.6 SECONDS (9.0-12.0) INR International Normalized Ratio 1.0 INR Activated Partial Thromboplast Time 27 SECONDS (22-32) Coagulation Comments Problem\Assessment\Plan Patient with history of migraine headaches who presents to the hospital with a severe episode of headache associated with some arm and leg symptoms concerning for possible acute CVA; MRI of the head showed no acute CVA; seen by neurology; this is a complex migraine; migraine improved yesterday with the use of sumatriptan but came back this morning with similar symptoms; use sumatriptan; if no improvement we will use the cocktail recommended by Neurology Methamphetamine use History of high blood pressure on losartan Dyslipidemia Depression on bupropion Date of Service: June 29, 2024 Billing Provider: SERVANDO CRISTINA MD Common Visit Codes: [id number] INP/OBS CARE(HIGH) SERVANDO CRISTINA MD June 29, 2024 15:30
[2024-06-29] MEDS: METAXALONE 800 MG PO SCH (16:00)
[2024-06-29 18:30] VITALS: BP 136/70; PULSE 67; RESP 17; TEMP 98.7; O2SAT 98
[2024-06-29 22:00] VITALS: BP 106/58; PULSE 69; RESP 16; TEMP 97.9; O2SAT 97
[2024-06-30 02:00] VITALS: BP 128/67; PULSE 60; RESP 16; TEMP 97.8; O2SAT 99
[2024-06-30 04:50] LABS: BASOPHILS % (AUTO) 0.6 % (0-1); EOSINOPHILS # (AUTO) 0.5 X10'3 (0-0.9); EOSINOPHILS % (AUTO) 6.8 % (0-6); HEMATOCRIT 43.7 % (35.0-45.0); HEMOGLOBIN 14.5 g/dl (12.0-16.0); LYMPHOCYTES # (AUTO) 2.3 X10'3 (1.1-4.8); LYMPHOCYTES % (AUTO) 32.7 % (21-51); MEAN CORPUSCULAR HEMOGLOBIN 32.3 PG (27.0-31.0); MEAN CORPUSCULAR HGB CONC 33.2 g/dL (33.0-36.5); MEAN CORPUSCULAR VOLUME 97.2 FL (78-98); MEAN PLATELET VOLUME 8.1 FL (7.4-10.4); MONOCYTES # (AUTO) 0.9 X10'3 (0-0.9); MONOCYTES % (AUTO) 12.1 % (2-12); NEUTROPHILS # (AUTO) 3.4 X10'3 (1.8-7.7); NEUTROPHILS % (AUTO) 47.8 % (42-75); PLATELET COUNT 238 X10'3 (140-440); RED CELL DISTRIBUTION WIDTH 13.3 % (11.5-14.5); WHITE BLOOD COUNT 7.1 X10'3 (4.5-11.0)
[2024-06-30 05:05] LABS: ALANINE AMINOTRANSFERASE 37 U/L (12-78); ALBUMIN 2.9 G/DL (3.4-5.0); ALKALINE PHOSPHATASE 96 IU/L (46-116); ANION GAP 4 (8-16); ASPARTATE AMINO TRANSFERASE 27 U/L (10-37); BILIRUBIN,TOTAL 0.3 MG/DL (0.1-1.0); BLOOD UREA NITROGEN 29 MG/DL (7-18); BUN/CREATININE RATIO 43.9 (10.0-20.0); CALCIUM 8.8 MG/DL (8.5-10.1); CHLORIDE 106 MMOL/L (99-107); CREATININE 0.66 MG/DL (0.40-0.90); GLUCOSE 85 MG/DL (70-104); MAGNESIUM 1.9 MG/DL (1.5-2.4); POTASSIUM 4.2 MMOL/L (3.5-5.1); SODIUM 141 MMOL/L (135-145); TOTAL CARBON DIOXIDE 31.5 MMOL/L (24-32); TOTAL PROTEIN 5.8 G/DL (6.4-8.2); eCRCL 68 ML/MIN; eGFR > 90 ML/MIN
[2024-06-30 06:00] VITALS: BP 121/61; PULSE 61; RESP 16; TEMP 97.5; O2SAT 96
[2024-06-30 08:00] VITALS: RESP 16; O2SAT 96
[2024-06-30] MEDS: atorvastatin 20mg tablet PO SCH (08:55)
[2024-06-30] MEDS: losartan 50mg tablet PO SCH (08:56)
[2024-06-30] MEDS: buPROPion SR 100mg tab PO SCH (08:56)
[2024-06-30] MEDS: aspirin 81mg, enteric-coated 1 TAB TABLET.DR PO SCH (08:56)
[2024-06-30] MEDS ORDERED: SUMA100T16 PO (09:38)
[2024-06-30 10:00] VITALS: BP 125/70; PULSE 80; RESP 19; TEMP 97.6; O2SAT 98
--- NOTE | 2024-06-30 16:38 | DISCHARGE SUMMARY ---
Discharge Summary Providers to CC ~ Discharge Summary Admission Diagnosis: STROKE SYMPTOMS Hospital Course DATE OF ADMISSION: June 28, 2024 DATE OF DISCHARGE: June 30, 2024 Discharge Diagnosis\Comment: Complex migraine CVA ruled out History of high blood pressure Dyslipidemia Depression Amphetamine use Operations\Procedures: None Consultants: Tele neurology Complications: None Condition on DC: Stable Discharge Summary: This is a 63 years old female who presents to the hospital with complaint of right upper and lower extremity weakness; this happened in the context of headache and she has a history of migraine headaches which come sometimes associated with symptoms like this but this was a very significant episode; patient was seen by tele neurology who recommended MRI of the brain to rule out CVA; CT of the head without contrast showed no evidence of acute intracranial hemorrhage; CTA of the head and neck showed 30% stenosis of proximal right ICA at the bulb; echocardiogram showed a normal EF with elevated right heart pressures; MRI of the brain showed no acute abnormality; for her migraine headache patient was treated with sumatriptan which helped and then the migraine return; patient received a cocktail recommended by Neurology including IV Toradol IV Benadryl and IV Zofran; today patient feels much better and her migraine had left; feels comfortable going home so patient in stable condition is discharged home Patient received prescription for sumatriptan 100 mg p.o. daily p.r.n. migraine headache; patient to continue her aspirin 81 mg p.o. daily Lipitor 20 mg p.o. daily bupropion 100 mg p.o. daily cyclobenzaprine 10 mg p.o. t.i.d. gabapentin 100 mg p.o. t.i.d. losartan 50 mg p.o. daily Skelaxin 800 mg p.o. q.8 hours Naprosyn 375 mg p.o. b.i.d. and propranolol 20 mg p.o. t.i.d. White count 7.1 H&H 14.5/43 with 238 platelets; sodium 141 potassium 4.2 CO2 31 BUN 29 and creatinine 0.6 In the physical examination temperature 97.6 heart rate 80 breathing 18 blood pressure 125/70 98% on room air HEENT normal oral mucosa no JVD lungs with normal bilateral entry no crackles no wheezing heart normal rate and rhythm S1- S2 no murmurs abdomen is soft obese nontender bowel sounds present extremities no edema plus two pulses she is awake and alert Patient was discharged home with home care nurse to follow up with her primary care physician within a week; strongly advised to avoid use of methamphetamines *Problems/Diagnosis: (1) Migraine Total Time Spent on D/C: > 30 Minutes Date of Service: June 30, 2024 Billing Provider: SERVANDO CRISTINA MD Common Visit Codes: 76050-HOH/OBS DISCH DAY >30min SERVANDO CRISTINA MD June 30, 2024 16:37
== END 2024-06-30 10:57 | disposition home health service (06) | DRG 47 ==
LOC: ER 21:16 → ED HOLD 06-28 01:53 → EDBEDREQ 06-28 06:46 → ORTHO 4S 06-28 07:31
PROVIDERS: ADMIT Internal Medicine Critical Care Medicine; ATTEND Internal Medicine
PROC: B3251ZZ Computerized Tomography (CT Scan) of Bilateral Common Carotid Arteries using Low Osmolar Contrast (ICD-10-PCS; principal; 2024-06-28)
PROC: B32G1ZZ Computerized Tomography (CT Scan) of Bilateral Vertebral Arteries using Low Osmolar Contrast (ICD-10-PCS; 2024-06-28)
PROC: B32R1ZZ Computerized Tomography (CT Scan) of Intracranial Arteries using Low Osmolar Contrast (ICD-10-PCS; 2024-06-28)
PROC: B3281ZZ Computerized Tomography (CT Scan) of Bilateral Internal Carotid Arteries using Low Osmolar Contrast (ICD-10-PCS; 2024-06-28)
DX: G45.9 Transient cerebral ischemic attack, unspecified (principal); F15.90 Other stimulant use, unspecified, uncomplicated; F32.A Depression, unspecified; G43.909 Migraine, unspecified, not intractable, without status migrainosus; G89.29 Other chronic pain; M54.89 Other dorsalgia; Z79.82 Long term (current) use of aspirin; Z79.899 Other long term (current) drug therapy
CPT/HCPCS: 36415; 70450; 70496; 70498; 70551; 71045; 80053; 80061; 80305; 81003; 82948; 83036; 83735; 83880; 84132; 84443; 84484; 85025; 85610; 85730; 87081; 93005; 93306; 96365; 96375; 97110; 97116; 97163; 99285; A6258; G0378; J1200; J1885; J2405; J3360; J7030; Q9967